=== PATIENT | female | born 1990 | race Caucasian/White ===

== ENCOUNTER 2021-06-04 12:27 | Inpatient (IN) | payer MEDICAID, OTHER ==
--- NOTE | 2021-06-04 12:51 | ED ---
General Adult HPI - General Stated complaint: Mental Health Time Seen by Provider: 06/04/21 12:28 Source: patient, police, RN notes reviewed, old records reviewed - History of Present Illness Initial comments: 30-year-old female brought in under court order petitioned by local [employer] department. Patient had been not cooperative requiring restraint during transport. There was a petition for mental health evaluation this was reported to be completed by the patient's parents. This was not available to time my initial evaluation. Patient denied suicidal or homicidal ideation. She denied illicit drugs. She states she is on Adderall and Prozac which she states she has been compliant with. - Related Data Home Medications Medication Instructions Recorded Confirmed Albuterol Sulfate [Ventolin HFA] 1 - 2 puff INHALATION RT-Q6H PRN 06/04/21 06/04/21 Dextroamphetamine/Amphetamine 20 mg PO BID 06/04/21 06/04/21 [Dextroamp-Amphetamin 20 mg Tab] FLUoxetine HCL [PROzac] 20 mg PO TID 06/04/21 06/04/21 Allergies Allergy/AdvReac Type Severity Reaction Status Date / Time clindamycin [From Cleocin] Allergy Unknown Verified 06/04/21 12:50 Review of Systems ROS Statement: Those systems with pertinent positive or pertinent negative responses have been documented in the HPI. ROS Other: All systems not noted in ROS Statement are negative. General Exam General appearance: alert, anxious Head exam: Present: atraumatic, normocephalic Eye exam: Present: normal appearance, PERRL ENT exam: Present: normal exam Neck exam: Present: normal inspection. Absent: tenderness, meningismus Respiratory exam: Present: normal lung sounds bilaterally. Absent: respiratory distress, wheezes Cardiovascular Exam: Present: regular rate, normal rhythm GI/Abdominal exam: Present: soft. Absent: distended, tenderness Neurological exam: Present: alert, CN II-XII intact, normal gait. Absent: motor sensory deficit Psychiatric exam: Present: agitated, anxious, other (Paranoid). Absent: suicidal ideation Skin exam: Present: warm, dry, intact Course Vital Signs 06/04/21 12:35 Temperature 98.7 F Pulse Rate 111 H Respiratory 20 Rate Blood Pressure 151/100 O2 Sat by Pulse 97 Oximetry - Reevaluation(s) Reevaluation #1: 06/04/21 12:50 Patient medically cleared for EPS. Medical Decision Making - Medical Decision Making I did complete a clinical certification on this patient for psychiatric admission. She will be admitted to this institution. - Lab Data Lab Results 06/04/21 Range/Units 13:07 Urine Opiates Screen Not Detected (NotDetected) Ur Oxycodone Screen Not Detected (NotDetected) Urine Methadone Screen Not Detected (NotDetected) Ur Propoxyphene Screen Not Detected (NotDetected) Ur Barbiturates Screen Not Detected (NotDetected) U Tricyclic Antidepress Not Detected (NotDetected) Ur Phencyclidine Scrn Not Detected (NotDetected) Ur Amphetamines Screen Detected H (NotDetected) U Methamphetamines Scrn Not Detected (NotDetected) U Benzodiazepines Scrn Not Detected (NotDetected) Urine Cocaine Screen Not Detected (NotDetected) U Marijuana (THC) Screen Not Detected (NotDetected) Disposition Clinical Impression: Depression, Acute psychosis Disposition: ADMITTED IP TO THIS [facility] Condition: Stable Is patient prescribed a controlled substance at d/c from ED?: No Referrals: None,Stated [REFERRING] - 1-2 days Decision to Admit Reason: Admit from EC Decision Date: 06/04/21 Decision Time: 15:03
[2021-06-04 13:36] LABS: Amphetamine Screen,Urine Detected (NotDetected); Barbiturate Screen,Urine Not Detected (NotDetected); Benzodiazepines Screen,Urine Not Detected (NotDetected); Cocaine Screen,Urine Not Detected (NotDetected); Methadone Screen, Urine Not Detected (NotDetected); Opiate Screen,Urine Not Detected (NotDetected); Oxycodone Screen, Urine Not Detected (NotDetected); Phencyclidine Screen,Urine Not Detected (NotDetected); Tricyclic Antidepressant,Urine Not Detected (NotDetected); Urn Cannabinoid Scrn Not Detected (NotDetected)
[2021-06-04] MEDS ORDERED: LORazepam 2 MG/ML INJ IM STA (15:01)
[2021-06-04] MEDS ORDERED: ONDANSETRON ODT 4 MG TAB PO STA (16:30)
[2021-06-04] MEDS ORDERED: ACETAMINOPHEN TAB 500 MG TAB PO STA (16:31)
[2021-06-04 21:06] VITALS: BP 133/96; PULSE 86; RESP 22; TEMP 98
[2021-06-04] MEDS ORDERED: ALBUTEROL INHALER 60 PUFF/8 GM INHALER (MHU) INHALATION PRN (23:37)
[2021-06-04] MEDS ORDERED: haloperidoL 5 MG TAB PO PRN (23:38)
[2021-06-04] MEDS ORDERED: HALOPERIDOL LACTATE 5 MG/ML 1 ML VIAL IM PRN (23:38)
[2021-06-04] MEDS ORDERED: MAGNESIUM HYDROXIDE 2,400 MG/10 ML CUP PO PRN (23:38)
[2021-06-04] MEDS ORDERED: ACETAMINOPHEN TAB 325 MG TAB PO PRN (23:38)
[2021-06-04] MEDS ORDERED: LORazepam 2 MG/ML INJ IM PRN (23:38)
[2021-06-04] MEDS ORDERED: MAG HYDROX/AL HYDROX/SIMETH 30 ML CUP PO PRN (23:38)
[2021-06-04] MEDS ORDERED: LORazepam 1 MG TAB PO PRN (23:38)
[2021-06-05] MEDS: FLUoxetine HCL 20 MG CAP PO SCH (08:57)
--- NOTE | 2021-06-05 12:23 | P.CONS ---
History of Present Illness - Reason for Consult Medical clearance - History of Present Illness 30-year-old female is admitted for acute psychosis. Patient denied any fever chills nausea vomiting abdominal pain dysuria. Patient denied any suicidal or homicidal ideations. Patient does take Prozac at Home. Patient Does Smoke occasionally as per the patient. REVIEW OF SYSTEMS: CONSTITUTIONAL: No fever, no malaise, no fatigue. HEENT: No recent visual problems or hearing problems. Denied any sore throat. CARDIOVASCULAR: No chest pain, orthopnea, PND, no palpitations, no syncope. PULMONARY: No shortness of breath, no cough, no hemoptysis. GASTROINTESTINAL: No diarrhea, no nausea, no vomiting, no abdominal pain. NEUROLOGICAL: No headaches, no weakness, no numbness. HEMATOLOGICAL: Denies any bleeding or petechiae. GENITOURINARY: Denies any burning micturition, frequency, or urgency. MUSCULOSKELETAL/RHEUMATOLOGICAL: Denies any joint pain, swelling, or any muscle pain. ENDOCRINE: Denies any polyuria or polydipsia. The rest of the 14-point review of systems is negative. PHYSICAL EXAMINATION: GENERAL: The patient is alert and oriented x3, not in any acute distress. Well developed, well nourished. HEENT: Pupils are round and equally reacting to light. EOMI. No scleral icterus. No conjunctival pallor. Normocephalic, atraumatic. No pharyngeal erythema. No thyromegaly. CARDIOVASCULAR: S1 and S2 present. No murmurs, rubs, or gallops. Tachycardia regular rhythm PULMONARY: Chest is clear to auscultation, no wheezing or crackles. ABDOMEN: Soft, nontender, nondistended, normoactive bowel sounds. No palpable organomegaly. MUSCULOSKELETAL: No joint swelling or deformity. EXTREMITIES: No cyanosis, clubbing, or pedal edema. NEUROLOGICAL: Gross neurological examination did not reveal any focal deficits. SKIN: No rashes. Assessment and plan -Tachycardia clinically appears to be sinus tachycardia no further intervention is azotemia this is secondary to acute psychosis and may be related to the Adderall she was taking. -Nicotine use: Counseling was provided -Asthma without any acute exacerbation patient was started on albuterol which is appropriate -Acute psychosis, ADD/ADHD management as per primary service DVT prophylaxis: Past Medical History Past Medical History: Asthma History of Any Multi-Drug Resistant Organisms: None Reported Past Surgical History: No Surgical Hx Reported Past Psychological History: ADD/ADHD, Anxiety, Depression Smoking Status: Current some day smoker Past Alcohol Use History: Occasional Past Drug Use History: None Reported Medications and Allergies Home Medications Medication Instructions Recorded Confirmed Type Albuterol Sulfate [Ventolin HFA] 1 - 2 puff INHALATION RT-Q6H PRN 06/04/21 06/04/21 History Dextroamphetamine/Amphetamine 20 mg PO BID 06/04/21 06/04/21 History [Dextroamp-Amphetamin 20 mg Tab] FLUoxetine HCL [PROzac] 20 mg PO TID 06/04/21 06/04/21 History Allergies Allergy/AdvReac Type Severity Reaction Status Date / Time clindamycin [From Cleocin] Allergy Unknown Verified 06/04/21 12:50 Physical Exam Vitals: Vital Signs Temp Pulse Pulse Resp BP BP Pulse Ox 06/04/21 21:02 98.0 F 86 22 133/96 06/04/21 12:35 98.7 F 111 H 20 151/100 97 Results Labs: Abnormal Lab Results - Last 24 Hours (Table) 06/04/21 Range/Units 13:07 Ur Amphetamines Screen Detected H (NotDetected)
[2021-06-05] MEDS ORDERED: NICOTINE GUM (POLACRILEX) 2 MG GUM BUCCAL PRN (14:10)
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
[2021-06-05] MEDS: lamoTRIgine 25 MG TAB PO SCH ×2 (14:40→22:09)
[2021-06-06] MEDS: lamoTRIgine 25 MG TAB PO SCH ×2 (08:55→21:19)
[2021-06-06] MEDS: FLUoxetine HCL 20 MG CAP PO SCH (08:55)
--- NOTE | 2021-06-06 11:19 | P.PN ---
Progress Note - Text Progress Note Date: 06/06/21 Interval History: Patient was seen lying in her bed today and was directable and agreeable to sp chantellk with health underwriter in the office. Patient appeared to be mildly irritable today and mildly argumentative with the health underwriter. She continues to minimize her need for treatment and being in the hospital. She believes that she does not need to go to groups as she is not gaining anything from them. She claims that she feels "a little better" overall since yesterday. She claims that she has been taking her medications and does not have any issues at this time. She was reminded once again both the rash as a potential side effect. She has mild improvement in her impulse control. She states that she slept fairly last night. When asked about her paranoid thought she states that "it could've been a coincidence" and spoke about potential advertisements coming up on her phone after she is talked about them. At this time patient denies any suicidal or homical ideations, intent or plan. Patient denies any auditory, visual hallucinations and denies any paranoia or delusions. Patient denies any side effects from the medications and has been compliant with meds. Mental Status Exam: General Appearance: Patient appears to be overweight, stated age is alert, difficult to redirect vague. Patient appears to have fair hygiene and grooming. Behavior: Patient is seated without any agitated behavior. less Irritable today and argumentative. Speech: Patient's speech is fluent and nonpressured. [place] Mood/Affect: Patient reports their mood is "a bit better", affect is congruent and constricted. Suicidality/Homicidality: Patient denies having any homicidal ideation intent or plan. Denies any suicidal ideations intent or plan Perceptions: Patient denies any visual hallucinations and denies any auditory hallucinations Though content/process: Minimizing her symptoms and need for hospitalization. Poverty of content. Evasive and guarded. Memory and concentration: AOX3, grossly intact for the purposes of this session. Judgment and insight: poor, improving mildly Assessment Mood disorder unspecified, rule out bipolar disorder versus major depressive disorder Cannabis use disorder Nicotine dependence Plan: -Patient continues to meet criteria for inpatient psychiatric admission for symptom stabilization and safety. Patient has signed adult voluntary form and medication consent and was placed in patient's chart. -Medications: Continue with Prozac 40 mg daily for mood/anxiety. Will increase Lamictal to 50 mg daily +25 mg daily at bedtime for mood stabilization/depression. plan to increase to 50mg bid over the weekend. -When necessary Ativan and Haldol for agitation/aggression. -NRT - nicotine patch -SW on board for discharge planning. Encouraged the patient to participate in milieu. likely discharge early next week.
[2021-06-07] MEDS: lamoTRIgine 25 MG TAB PO SCH ×2 (08:15→21:11)
[2021-06-07] MEDS: FLUoxetine HCL 20 MG CAP PO SCH (08:15)
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
[2021-06-08] MEDS: lamoTRIgine 25 MG TAB PO SCH ×2 (08:23→20:05)
[2021-06-08] MEDS: FLUoxetine HCL 20 MG CAP PO SCH (08:23)
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
[2021-06-09] MEDS: FLUoxetine HCL 20 MG CAP PO SCH (09:03)
[2021-06-09] MEDS: lamoTRIgine 25 MG TAB PO SCH ×2 (09:03→20:46)
--- NOTE | 2021-06-09 12:18 | PN ---
PROGRESS NOTE DATE OF SERVICE: 06/09/2021. CHIEF COMPLAINT: The patient was admitted on petition for making threatening statements toward her father, though she says there was no intent and it was said impulsively. She has a history of depression. INTERVAL HISTORY: Patient has been doing fairly well. She had a quiet day yesterday. She comes out on the unit. She has been attending groups. She said that the groups have been helpful for her. She notes that she has a better outlook. Her mood has improved. Yesterday she did attend all of the groups. She said she slept well last night. Today she has been up. She comes out in the day area. She has not had any issues with her medication. She asked specific questions in regard to follow-up plans and in particular what would happen with her medications and would prescriptions be provided. She said at this point she is unclear about followup, though recognizes that it would be beneficial for her to be in some counseling as well as to get followup for her medications. She tolerates her medications well. It is noteworthy that she has been more social and interactive on the unit. She has been appropriate in her interactions with staff and peers. MENTAL STATUS: Patient gave good eye contact. She showed a little bit of improvement in self- care. She answered questions appropriately. Her thoughts were clear, coherent and goal- directed. She was spontaneous and interactive. Her affect was just a little constricted though not significantly so. She had a reserved manner, though she seemed to be comfortable in the discussion. Her mood was quiet. She did not appear to be significantly distressed or depressed. There was no indication of thought disorder. She voiced no thoughts of harm. Cognition was clear. ASSESSMENT: I will continue the current diagnosis and treatment plan. I will continue psychotropic medications the same. I discussed with the patient that Dr. Kraus might choose to continue to titrate up on Lamictal or continue the dose the same. I did note issues in regard to rash as a possible serious side effect in the early stages of Lamictal titration. I noted that tomorrow the staff would be working on setting up discharge planning. As Dr. Kraus noted on , he anticipates discharge early in the week. We will focus on stabilization and discharge planning. [facility] / [facility]: [id number] / [facility]
[2021-06-10] MEDS: FLUoxetine HCL 20 MG CAP PO SCH (08:41)
[2021-06-10] MEDS: lamoTRIgine 25 MG TAB PO SCH (08:41)
--- NOTE | 2021-06-10 10:14 | P.DS ---
Providers Date of admission: 06/04/21 18:56 Expected date of discharge: 06/10/21 Attending physician: Todd Kraus MD Consults: 06/04/21 23:38 Consult Physician Routine Consulting Provider: Tony Cui Consult Reason/Comments: H&P and medical Do you want consulting provider notified?: Yes Primary care physician: Art Montenegro - Discharge Diagnosis(es) (1) Unspecified mood [affective] disorder Current Visit: Yes Status: Acute Priority: High (2) Cannabis use disorder, mild, abuse Current Visit: Yes Status: Acute Priority: Medium (3) Nicotine dependence Current Visit: Yes Status: Acute Priority: Low Hospital Course: Admission HPI: Admission note was completed by policy writer "Patient is a 30-year-old female, who is currently single has no kids and lives with her dad in a house. She currently works as a home health aide. Patient presented to the hospital yesterday on a petition with police escort. [place] the airport patient required restraints during transport due to being uncooperative with coming into the hospital. Patient had a UDS which was positive for amphetamines. Patient was admitted involuntarily with a petition. Patient was seen in the hallways and agreeable to speak to policy writer. She appeared to be somewhat irritable today and upset that she was no hospital. She is fairly focused on discharge and minimizing why she came into the hospital. She was fairly vague and guarded and evasive when describing the details of what happened. She states that she "threatened my dad but he took it seriously". She states that she made a threat to kill him but didn't actually mean it. She states that it was "impulsive". She claims that she believed that someone was going through her phone and believed that it was her father. She claims that it was all just a coincidence. She claims that her dad took it to heart and that he called the police on her as it was done through text message. She states that she was "ripped out of my house" and taking into the hospital. She states that her sleep has been fair. She claims that she does have mood swings at times and is feeling "pissed" today however is denying any depression. She states that she is anxious. Patient denies any suicidal or homicidal ideations intent or plan. At this time patient denies any auditory or visual hallucinations. Patient denies any flight of ideas racing thoughts and increased in goal directed behavior. Patient admits to using cigarettes daily and alcohol occasionally. She denies any other recreational drug use." Hospital course: Upon admission to the unit patient was initially directable and agreeable to commence treatment and signed adult voluntary form. Patient initially mainly isolated in her room however with ongoing treatment and time patient got along well with other patients on the unit and followed unit protocol. Patient was compliant with the medications and denied any side effects throughout hospital course. Patient was started on Prozac and titrated up to dose of 40 mg daily for mood/anxiety. Patient was also started on Lamictal and titrated up to dose to 100 mg daily for mood stabilization/depression. Patient spoke of her stressors and engaged in therapy both group and individual. Patient was also seen by medical team for history and physical exam. Throughout the course of the hospitalization patient gradually improved with regards to mood lability, anxiety, sleep and became more future oriented with improved insight and judgment. On the day of discharge patient denied any suicidal or homicidal ideations intent or plan denied any auditory or visual hallucinations. Patient endorsed wanting to live for her future and her family. The patient denied any access to guns or weapons. Patient denied any paranoia and did not endorse any delusions. Patient does have a significant history of substance abuse and was counseled on abstaining from all substances including alcohol and marijuana. Patient elected to do outpatient substance use treatment program through [facility]. Patient did claim that she was not overusing her Adderall and has been on it for several years without a dose change. Patient was also counseled on the medications and need for regular compliance and was encouraged to follow-up with their outpatient appointment for mental health and also for primary care. Prior to discharge a family meeting will be arranged by social staff worker to answer any questions and ensure safety upon discharge and to ensure that guns and weapons are either locked away or removed from the house. Mental status exam: General Appearance: Patient appears to be overweight, stated age is alert, pleasant, and cooperative. Patient is in no acute distress and has improved hygiene and grooming Behavior: Patient is calmly seated without any agitated behavior. Speech: Patient's speech is fluent and nonpressured. Mood/Affect: Patient reports their mood is "good", affect is congruent Suicidality/Homicidality: Patient denies having any suicidal or homicidal ideation intent or plan. Perceptions: Patient denies any auditory or visual hallucinations. Though content/process: There is no evidence of any delusional thought content and thought process is linear and goal-directed. more future oriented Memory and concentration: AOX3, grossly intact for the purposes of this session. Can spell "WORLD" backwards correctly. Judgment and insight: chronically poor, however has improved with guarded prognosis Impression: Mood disorder unspecified, rule out substance-induced mood disorder versus bipolar disorder Cannabis use disorder mild Nicotine dependence Plan: -Continue with discharge today as patient has improved and stabilized psychiatrically and is not currently an imminent threat to herself and/or others. Patient will remain at chronically elevated risk for harm to self and/or others due to her impulsivity. -Continue medications: Prozac 40 mg daily for mood/anxiety, Lamictal 100 mg daily for mood stabilization/depression. -Patient was counseled on the need for medication compliance and appropriate f ollow-up at mental health and also primary care for medical issues. Patient verbalized understanding and agreed. -Social work to arrange for and conduct family meeting to ensure safety upon discharge and answer any questions/concerns and to ensure that any cons or weapons have been removed from the house or locked away. Social work also to arrange for patients follow up appointments with [facility] for psychiatric care along with follow up with primary care provider. -Patient counseled on abstaining from recreational drugs and marijuana and alcohol. Was informed/educated on the adverse effects on their physical and mental health. Patient verbally agreed and understood. -Patient was instructed to return to the hospital or seek immediate medical care if their psychiatric or medical symptoms do worsen or reoccur. Allergies Allergy/AdvReac Type Severity Reaction Status Date / Time clindamycin [From Cleocin] Allergy Unknown Verified 06/09/21 13:33 Laboratory Results Urine Opiates Screen Not Detected (NotDetected) 06/04/21 13:07 Ur Oxycodone Screen Not Detected (NotDetected) 06/04/21 13:07 Urine Methadone Screen Not Detected (NotDetected) 06/04/21 13:07 Ur Propoxyphene Screen Not Detected (NotDetected) 06/04/21 13:07 Ur Barbiturates Screen Not Detected (NotDetected) 06/04/21 13:07 U Tricyclic Antidepress Not Detected (NotDetected) 06/04/21 13:07 Ur Phencyclidine Scrn Not Detected (NotDetected) 06/04/21 13:07 Ur Amphetamines Screen Detected (NotDetected) H 06/04/21 13:07 U Methamphetamines Scrn Not Detected (NotDetected) 06/04/21 13:07 U Benzodiazepines Scrn Not Detected (NotDetected) 06/04/21 13:07 Urine Cocaine Screen Not Detected (NotDetected) 06/04/21 13:07 U Marijuana (THC) Screen Not Detected (NotDetected) 06/04/21 13:07 Coronavirus (PCR) Not Detected (Not Detectd) 06/04/21 15:06 Vital Signs Temp 98.0 F 06/04/21 21:02 Pulse 86 06/04/21 21:02 Resp 22 06/04/21 21:02 BP 133/96 06/04/21 21:02 Pulse Ox 97 06/04/21 12:35 Patient Condition at Discharge: Stable Plan - Discharge Summary New Discharge Prescriptions: New FLUoxetine HCL [PROzac] 40 mg PO DAILY 30 Days cap lamoTRIgine [LaMICtal] 100 mg PO DAILY 30 Days tab Nicotine Gum (Polacrilex) [Nicorette] 2 mg BUCCAL Q4HR PRN 28 Days PRN Reason: Nicotine Cravings Continue Dextroamphetamine/Amphetamine [Dextroamp-Amphetamin 20 mg Tab] 20 mg PO BID Albuterol Sulfate [Ventolin HFA] 1 - 2 puff INHALATION RT-Q6H PRN PRN Reason: Shortness Of Breath Discontinued FLUoxetine HCL [PROzac] 20 mg PO TID Discharge Medication List Albuterol Sulfate [Ventolin HFA] 1 - 2 puff INHALATION RT-Q6H PRN 06/04/21 [History] Dextroamphetamine/Amphetamine [Dextroamp-Amphetamin 20 mg Tab] 20 mg PO BID 06/04/21 [History] FLUoxetine HCL [PROzac] 40 mg PO DAILY 30 Days cap 06/10/21 [Rx] Nicotine Gum (Polacrilex) [Nicorette] 2 mg BUCCAL Q4HR PRN 28 Days 06/10/21 [Rx] lamoTRIgine [LaMICtal] 100 mg PO DAILY 30 Days tab 06/10/21 [Rx] Follow up Appointment(s)/Referral(s): None,Stated [REFERRING] - 1-2 days Activity/Diet/Wound Care/Special Instructions: Activity and diet as tolerated. Avoid the use of street drugs and alcohol. Take all medications as prescribed. When you are in need of refills on your medications please contact your medical provider and/or outpatient psychiatrist to have this done. Please go to scheduled outpatient appointment for aftercare treatment. If symptoms return or become worse, call the crisis line at and/or go to the nearest emergency room for evaluation. Discharge Disposition: HOME SELF-CARE
[2021-06-11] MEDS ORDERED: lamoTRIgine 100 MG TAB PO SCH (09:00)
== END 2021-06-10 16:27 | disposition home or self-care (01) | DRG 885 ==
LOC: EC 12:27 → 3MHU 18:56
PROVIDERS: ADMIT Psychiatry & Neurology Psychiatry; ATTEND Psychiatry & Neurology Psychiatry
DX: F39 Unspecified mood [affective] disorder (principal); F12.10 Cannabis abuse, uncomplicated; Z20.822 Contact with and (suspected) exposure to COVID-19; F41.9 Anxiety disorder, unspecified; F90.9 Attention-deficit hyperactivity disorder, unspecified type; J45.909 Unspecified asthma, uncomplicated; F17.210 Nicotine dependence, cigarettes, uncomplicated; R45.87 Impulsiveness; Z79.899 Other long term (current) drug therapy; Z71.51 Drug abuse counseling and surveillance of drug abuser; Z71.41 Alcohol abuse counseling and surveillance of alcoholic; Z88.1 Allergy status to other antibiotic agents
CPT/HCPCS: 80306; 82075; 87635; 99285